=== PATIENT | female | born 1970 | race Hispanic/Latino ===

== ENCOUNTER 2022-10-26 05:49 | Emergency (ER) | payer OTHER, MEDICARE ==
[2022-10-26] MEDS ORDERED: predniSONE 20 MG TAB ONE (06:26)
[2022-10-26] MEDS ORDERED: Ipratropium/Albuterol 3 ML NEB ONE (06:27)
== END 2022-10-26 07:20 | disposition home or self-care (01) ==
LOC: CSHERS 05:49
DX: J45.901 Unspecified asthma with (acute) exacerbation (principal)
CPT/HCPCS: 71045; 94760; J7512; J7620